=== PATIENT | female | born 1935 | race Two or more races ===

== ENCOUNTER 2016-08-31 14:08 | Emergency (ER) | payer MEDICARE ==
[2016-08-31 14:12] VITALS: BP 159/69; PULSE 92; RESP 22; TEMP 97.9; O2SAT 97
--- NOTE | 2016-08-31 14:22 | PD ---
Physical Exam Time Seen by Provider: 14:21 Narrative 81yo F c/o right facial swelling since yesterday. Denies fever, vomiting. Patient seen in triage. VS reviewed. Awaiting bed placement. Data Data Last Documented VS Vital Signs Date Time Temp Pulse Resp B/P Pulse Ox O2 Delivery O2 Flow Rate FiO2 08/31/16 14:12 97.9 92 22 159/69 97 Room Air [facility] Supervised Visit with MARKO: Yenny Decker Aug 31, 2016 14:22
[2016-08-31] MEDS ORDERED: CLINDAMYCIN PHOS 600 MG/4 ML VIAL IM ONE ×2 (15:15→15:30)
--- NOTE | 2016-08-31 15:17 | PD ---
HPI Chief Complaint: Oral / Dental Pain or Problem Time Seen by Provider: 15:11 Travel History International Travel<30 days: No Contact w/Intl Traveler<30days: No Traveled to known affect area: No History of Present Illness HPI Patient comes in complaining of right facial swelling that began last night. Patient having right-sided lower dental pain over her molar for couple of weeks and she has been rinsing her mouth with warm salt water for treatment. Patient concerned when the swelling began. Patient states she has not yet seen a dentist for this. Denies any fevers or difficulty swallowing. Denies any radiation of the pain. Patient speaks Cantonese and brought her own translator interpreter. Hospital translator interpreter was offered, however patient is wanting to use the translator interpreter she brought to translate for her. [facility] Past Medical History Medical History: Denies Significant Hx Social History Tobacco Use: No Substance Use: No Allergies-Medications (Allergen,Severity, Reaction): Coded Allergies: No Known Allergies (Unverified , 08/31/16) Reported Meds & Prescriptions Reported Meds & Active Scripts Active Clindamycin (Clindamycin HCl) 150 Mg Cap 150 Mg PO Q6H 10 Days Review of Systems Except as stated in HPI: all other systems reviewed are Neg Physical Exam Narrative GENERAL: Well-developed, well nourished, in no acute distress, and non-ill appearing. SKIN: Focused skin assessment warm and dry. HEAD: Atraumatic. Normocephalic. EYES: Pupils equal and round. EOMI. No scleral icterus. No injection or drainage. ENT: No nasal bleeding or discharge. Mucous membranes pink and moist. Uvula is midline. There is poor temptation without visible or palpable abscess. There is some soft tissue swelling on the right lower mandible without fluctuation. Floor the mouth, submandibular, and submental are all soft to palpation. NECK: Trachea midline. No cervical lymphadenopathy. Supple. No nuclear rigidity. RESPIRATORY: No accessory muscle use. No respiratory distress. MUSCULOSKELETAL: No obvious deformities. No clubbing. No cyanosis. No edema. Full range of motion. NEUROLOGICAL: Awake and alert. No obvious cranial nerve deficits. Motor grossly within normal limits. Normal speech. PSYCHIATRIC: Appropriate mood and affect; insight and judgment normal. Data Data Last Documented VS Vital Signs Date Time Temp Pulse Resp B/P Pulse Ox O2 Delivery O2 Flow Rate FiO2 08/31/16 16:26 79 20 159/62 97 08/31/16 14:12 97.9 Room Air Orders Clindamycin Inj (Cleocin Inj) (08/31/16 15:15) Clindamycin Inj (Cleocin Inj) (08/31/16 15:30) [facility] Medical Decision Making Medical Screen Exam Complete: Yes Emergency Medical Condition: Yes Differential Diagnosis Dentalgia, dental infection, dental abscess, other Narrative Course The patient presented with dental pain. There is no fever. There is no significant facial swelling or evidence of cellulitis. There is poor dentition but no evidence of drainable abscess at this time. There is no evidence of significant deep or invading abscess at this time. The patient will be placed on antibiotics. The patient was instructed to follow up with a dentist. Warnings were discussed with the patient regarding worsening of infection. The patient is to return if pain worsens, develops progressive swelling or facial redness or fever. The patient agrees with plan. Patient in no obvious distress upon re-evaluation. Discussed patient with Dr. Tapia prior discharge, who is in agreement with plan of care and disposition. Patient was asked if they wanted to speak to my attending, which the patient did not wish to do at this time. Any questions/concerns in reference to patient diagnosis/condition discussed and clarified prior to patient's discharge. Reinforced sheer importance of close follow up with patient's primary physician or primary care clinic and/or dentist. Instructed patient to return to ED immediately, if symptoms return/worsen. Pt showed understanding of above instructions. Further instructions and recommendations were detailed in discharge paperwork. Pt ambulated without difficulty out of ED at discharge. Diagnosis Primary Impression: Dental infection Patient Instructions: Dental Abscess (GEN), Dental Caries (ED), General Instructions Additional Instructions: Follow-up with your primary care physician and dentist as soon as possible. Rinse mouth with warm salt water gargles. Take all medication as prescribed. Use [id number] Tylenol and/or ibuprofen as needed for pain. Follow instructions and the packaging. Return to the emergency department if symptoms get worse. Med/Other Pt SpecificInfo: Prescription(s) given Scripts Clindamycin 150 Mg [id number] Mg PO Q6H 10 Days Ref 0 Prov:Jaki Tapia MD 08/31/16 Disposition: 01 DISCHARGE HOME Condition: Stable Rodrigo Colmenares Aug 31, 2016 15:17
[2016-08-31] MEDS ORDERED: CLIN1CAP5 PO (15:21)
[2016-08-31 16:26] VITALS: BP 159/62
== END 2016-08-31 16:30 | disposition home or self-care (01) ==
LOC: NEPD 14:08
DX: K04.7 Periapical abscess without sinus (principal)
CPT/HCPCS: 96372